=== PATIENT | male | born 1950 | race Asian ===

== ENCOUNTER 2021-08-27 08:24 | Emergency (ER) | payer MEDICARE, MEDICAID ==
[~2021-08-27] VITALS: Ht 160 cm; Wt 59.1 kg
[~2021-08-27 08:24] MED LIST: ASPI-1071 PO; ATOR20TA66 PO; MECL-226 PO; amiodarone 50MG/ML inj IV ONE; atropine 0.1mg/ml 10ml syringe ONE; calcium chloride 100 MG/1 ML inj IV ONE; dextrose 50%-water 50ml dispensing syringe IV ONE; epiNEPHrine 0.1mg/ml 10ml syringe ONE; sod chloride 0.9% 10ml flush syringe IV ONE; sodium bicarbonate (8.4%) 1 mEq/ml syringe ONE
--- NOTE | 2021-08-27 08:24 | NUR ---
See code sheet.
== END 2021-08-27 13:11 ==
LOC: ER 08:24
DX: I46.9 Cardiac arrest, cause unspecified (principal); E78.00 Pure hypercholesterolemia, unspecified; I10 Essential (primary) hypertension; F17.200 Nicotine dependence, unspecified, uncomplicated; Z79.82 Long term (current) use of aspirin; Z79.899 Other long term (current) drug therapy
CPT/HCPCS: 31500; 82948; 92950; 93005; 99285; J0171; J0282; J0461; J3490